=== PATIENT | female | born 1985 | race Caucasian/White ===

== ENCOUNTER 2019-10-10 16:19 | Emergency (ER) | payer SELFPAY ==
[2019-10-10 17:22] LABS: Urine Blood TRACE (NEG); Urine Glucose NEGATIVE (NEG); Urine Protein NEGATIVE (NEG)
--- NOTE | 2019-10-10 17:44 | RAD REPORT ---
EXAM DESCRIPTION: CT - Stone Protocol - 10/10/2019 5:29 pm CLINICAL HISTORY: Abdominal pain. COMPARISON: None. TECHNIQUE: Computed axial tomography of the abdomen pelvis was obtained without oral or IV contrast. Lack of IV and oral contrast limits evaluation of solid organs, bowel, and vessels. Coronal reformat viirdiana images were obtained and reviewed. All CT scans are performed using dose optimization technique as appropriate and may include automated exposure control or mA/KV adjustment according to patient size. FINDINGS: Multiple, bilateral very small renal calculi. No hydronephrosis. An ureteral calculus is n ot noted. A bladder calculus is not present. 7 millimeter low-density area the right kidney is nonspe cific but probably is a cyst The liver, spleen, pancreas and adrenals appear grossly normal There is no evidence of diverticulitis. The appendix appears normal An IUD is present within the uterus IMPRESSION: Small, bilateral nonobstructing renal calculi
--- NOTE | 2019-10-10 18:03 | ER ---
Nurse's Notes [facility] Name: January Martinez Age: 33 yrs Sex: Female : 1985 Arrival Date: 10/10/2019 Time: 16:21 Bed 13 Private MD: Diagnosis: Unspecified renal colic Presentation: 10/09 16:36 Chief complaint: Patient states: I HAD REALLY BAD BACK PAIN LAST NIGHT AND THIS MORNING ss IT STARTED IN THE FRONT. I DIDN'T KNOW IF IT WAS A UTI, SO I STUCK MY FINGERS UP IN THERE AND IT FELT TIGHTER THAN USUAL. Coronavirus screen: Proceed with normal triage. Ebola Screen: No symptoms or risks identified at this time. Initial Sepsis Screen: Does the patient meet any 2 criteria? HR > 90 bpm. No. Patient's initial sepsis screen is negative. Does the patient have a suspected source of infection? Yes: Dysuria/Frequency/Urgency/UTI. Risk Assessment: Do you want to hurt yourself or someone else? Patient reports no desire to harm self or others. Onset of symptoms is unknown. 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 - Social history:: Smoking status: Patient denies any tobacco usage or history of. Screenin:44 Abuse screen: Denies threats or abuse. Nutritional screening: No deficits noted. tw2 Tuberculosis screening: No symptoms or risk factors identified. Fall Risk None identified. Assessment: 17:30 General: Appears uncomfortable, Behavior is cooperative, appropriate for age, anxious. tw2 Pain: Complains of pain in back. Neuro: Level of Consciousness is awake, alert, obeys commands, Oriented to person, place, time, situation. Cardiovascular: Heart tones S1 S2 Capillary refill < 3 seconds Patient's skin is warm and dry. Respiratory: Airway is patent Respiratory effort is even, unlabored, Respiratory pattern is regular, symmetrical, Breath sounds are clear bilaterally. GI: No signs and/or symptoms were reported involving the gastrointestinal system. : No signs and/or symptoms were reported regarding the genitourinary system. EENT: No signs and/or symptoms were reported regarding the EENT system. Derm: No signs and/or symptoms reported regarding the dermatologic system. Musculoskeletal: Circulation, motion, and sensation intact. Range of motion: intact in all extremities. 18:44 Reassessment: Patient appears in no apparent distress at this time. No changes from tw2 previously documented assessment. Patient and/or family updated on plan of care and expected duration. Pain level reassessed. Patient is alert, oriented x 3, equal unlabored respirations, skin warm/dry/pink. Patient states feeling better. Vital Signs: 16:36 BP 143 / 75; Pulse 130; Resp 20; Temp 98.1; Pulse Ox 100% ; Weight 68.04 kg; Height 5 ss ft. 4 in. (162.56 cm); 18:14 BP 116 / 76; Pulse 113; Resp 19; Temp 97.9(O); Pulse Ox 99% on R/A; tw2 16:36 Body Mass Index 25.75 (68.04 kg, 162.56 cm) ss ED Course: 16:21 Patient arrived in ED. as 16:37 Triage completed. ss 16:38 Arm band placed on. ss 17:22 Bed in low position. Call light in reach. Pulse ox on. NIBP on. Warm blanket given. tw2 17:27 Diane Portillo, RN is Primary Nurse. tw2 17:29 CT Stone Protocol In Process Unspecified. EDMS 17:45 Krist[facility] Craig [facility]-C [facility]. snw 17:45 Jon Spann MD is Attending Physician. snw 18:46 No provider procedures requiring assistance completed. Patient did not have IV access tw2 during this emergency room visit. Administered Medications: 18:17 Drug: TORadol 30 mg Route: IM; Site: left deltoid; tw2 18:40 Follow up: Response: No adverse reaction; Pain is decreased tw2 Outcome: 18:02 Discharge ordered by . snw 18:46 Discharged to home ambulatory. tw2 18:46 Condition: stable 18:46 Discharge instructions given to patient, Instructed on discharge instructions, follow up and referral plans. medication usage, Demonstrated understanding of instructions, follow-up care, medications, Prescriptions given X 1. 18:47 Patient left the ED. tw2 Signatures: Dispatcher [employer] EDMS Kristy Craig, PAN WASHER-C PAN WASHER-Csnw Amanda Mar Shelby, RN RN Diane Portillo RN RN tw2 Corrections: (The following items were deleted from the chart) 18:46 18:44 Reassessment: Patient appears in no apparent distress at this time. No changes tw2 from previously documented assessment. Patient and/or family updated on plan of care and expected duration. Pain level reassessed. Patient is alert, oriented x 3, equal unlabored respirations, skin warm/dry/pink. tw2
--- NOTE | 2019-10-10 18:03 | EDPHYS ---
Physician Documentation [facility] Name: January Martinez Age: 33 yrs Sex: Female : 1985 Arrival Date: 10/10/2019 Time: 16:21 Bed 13 Private MD: ALBINO Physician Jon Spann HPI: 10/09 18:00 This 33 yrs old Female presents to ER via Ambulatory with complaints of Low snw Back Pain, Pelvic Pain. 18:00 The patient presents with pain that is acute, with no known mechanism of injury. The snw symptoms are located in the flank with radiation around to low pelvis. The pain radiates to the pelvis. The problem was sustained from unknown cause. Onset: The symptoms/episode began/occurred suddenly, yesterday. Associated signs and symptoms: The patient has no apparent associated signs or symptoms. Severity of symptoms: At their worst the symptoms were moderate, severe. The patient has not experienced similar symptoms in the past. It is unknown whether or not the patient has recently seen a physician. no fever, no vaginal discharge, + menses. 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 - Social history:: Smoking status: Patient denies any tobacco usage or history of. ROS: 17:55 Constitutional: Negative for fever, chills, and weight loss, Eyes: Negative for injury, snw pain, redness, and discharge, ENT: Negative for injury, pain, and discharge, Neck: Negative for injury, pain, and swelling, Cardiovascular: Negative for chest pain, palpitations, and edema, Respiratory: Negative for shortness of breath, cough, wheezing, and pleuritic chest pain, Abdomen/GI: Negative for abdominal pain, nausea, vomiting, diarrhea, and constipation, MS/Extremity: Negative for injury and deformity, Skin: Negative for injury, rash, and discoloration, Neuro: Negative for headache, weakness, numbness, tingling, and seizure, Psych: Negative for depression, anxiety, suicide ideation, homicidal ideation, and hallucinations. 17:55 Back: Positive for flank pain, bilaterally, last pm that moved around to lower abdomen. . 17:55 : Positive for pt states she is on her period and felt pulling to pelvic area. Exam: 17:55 Constitutional: This is a well developed, well nourished patient who is awake, alert, snw and in no acute distress. Head/Face: Normocephalic, atraumatic. Eyes: Pupils equal round and reactive to light, extra-ocular motions intact. Lids and lashes normal. Conjunctiva and sclera are non-icteric and not injected. Cornea within normal limits. Periorbital areas with no swelling, redness, or edema. ENT: Nares patent. No nasal discharge, no septal abnormalities noted. Tympanic membranes are normal and external auditory canals are clear. Oropharynx with no redness, swelling, or masses, exudates, or evidence of obstruction, uvula midline. Mucous membranes moist. Neck: Trachea midline, no thyromegaly or masses palpated, and no cervical lymphadenopathy. Supple, full range of motion without nuchal rigidity, or vertebral point tenderness. No Meningismus. Chest/axilla: Normal chest wall appearance and motion. Nontender with no deformity. No lesions are appreciated. Cardiovascular: Regular rate and rhythm with a normal S1 and S2. No gallops, murmurs, or rubs. Normal PMI, no JVD. No pulse deficits. Respiratory: Lungs have equal breath sounds bilaterally, clear to auscultation and percussion. No rales, rhonchi or wheezes noted. No increased work of breathing, no retractions or nasal flaring. Abdomen/GI: Soft, non-tender, with normal bowel sounds. No distension or tympany. No guarding or rebound. No evidence of tenderness throughout. Back: No spinal tenderness. No costovertebral tenderness. Full range of motion. MS/ Extremity: Pulses equal, no cyanosis. Neurovascular intact. Full, normal range of motion. Neuro: Awake and alert, GCS 15, oriented to person, place, time, and situation. Cranial nerves II-XII grossly intact. Motor strength 5/5 in all extremities. Sensory grossly intact. Cerebellar exam normal. Normal gait. Psych: Awake, alert, with orientation to person, place and time. Behavior, mood, and affect are within normal limits. 17:55 Skin: Appearance: Color: normal in color, ecchymosis, that are moderate, of the back of thighs, pt states from drug use. Vital Signs: 16:36 BP 143 / 75; Pulse 130; Resp 20; Temp 98.1; Pulse Ox 100% ; Weight 68.04 kg; Height 5 ss ft. 4 in. (162.56 cm); 18:14 BP 116 / 76; Pulse 113; Resp 19; Temp 97.9(O); Pulse Ox 99% on R/A; tw2 16:36 Body Mass Index 25.75 (68.04 kg, 162.56 cm) ss MDM: 17:47 Patient medically screened. snw 18:03 Data reviewed: vital signs, nurses notes. Data interpreted: Pulse oximetry: on room air snw is 100 %. Interpretation: normal. Counseling: I had a detailed discussion with the patient and/or guardian regarding: the historical points, exam findings, and any diagnostic results supporting the discharge/admit diagnosis, the presence of at least one elevated blood pressure reading (>120/80) during this emergency department visit, lab results, radiology results, the need for outpatient follow up, to return to the emergency department if symptoms worsen or persist or if there are any questions or concerns that arise at home. Special discussion: I have referred the patient to see his PCP for further evaluation of high blood pressure. Based on the history and exam findings, there is no indication for further emergent testing or inpatient evaluation. I discussed with the patient/guardian the need to see the OB Gyne specialist for further evaluation of the symptoms. I discussed with the patient/guardian the need to see the primary care provider for further evaluation of the symptoms. 10/09 17:18 Order name: Urine Dipstick--Ancillary (enter results) [facility] 10/09 17:18 Order name: Urine --Ancillary (enter results) em 10/09 17:22 Order name: Urine --Ancillary EDDE 10/09 17:09 Order name: CT Stone Protocol; Complete Time: 17:50 snw 10/09 17:22 Order name: Urine Dipstick-Ancillary [facility] 10/09 18:03 Order name: Recheck VS; Complete Time: 18:15 snw Administered Medications: 18:17 Drug: TORadol 30 mg Route: IM; Site: left deltoid; tw2 18:40 Follow up: Response: No adverse reaction; Pain is decreased tw2 Disposition: 10/10 13:21 Co-signature as Attending Physician, Jon Spann MD I agree with the assessment and lamar plan of care. Disposition: 10/10/19 18:02 Discharged to Home. Impression: Unspecified renal colic. - Condition is Stable. - Discharge Instructions: Kidney Stones, Renal Colic, Dietary Guidelines to Help Prevent Kidney Stones, Rehydration, Adult. - Prescriptions for Diclofenac Sodium 75 mg Oral Tablet Sustained Release - take 1 tablet by ORAL route 2 times per day; 30 tablet. - Medication Reconciliation Form, Thank You Letter, Antibiotic Education, Prescription Opioid Use form. - Follow up: Emergency Department; When: As needed; Reason: Worsening of condition. Follow up: Private Physician; When: 2 - 3 days; Reason: Recheck today's complaints, Continuance of care, Re-evaluation by your physician. Signatures: Dispatcher [employer] Jon Torres MD MD cha Therrien, Shelly, TRANSIT CLERK-C TRANSIT CLERK-Csnw Yocasta Archibald RN RN Diane Portillo RN RN tw2 Corrections: (The following items were deleted from the chart) 10/09 18:47 18:02 10/10/2019 18:02 Discharged to Home. Impression: Unspecified renal colic. tw2 Condition is Stable. Forms are Medication Reconciliation Form, Thank You Letter, Antibiotic Education, Prescription Opioid Use. Follow up: Emergency Department; When: As needed; Reason: Worsening of condition. Follow up: Private Physician; When: 2 - 3 days; Reason: Recheck today's complaints, Continuance of care, Re-evaluation by your physician. snw
[2019-10-10] MEDS ORDERED: KETOROLAC 30 MG/ML INJ ONE (18:21)
[2019-10-10 18:56] VITALS: BP 116/76; TEMP 97.9; O2SAT 99
== END 2019-10-10 18:47 | disposition home or self-care (01) ==
LOC: ER 16:19
DX: N23 Unspecified renal colic (principal)
CPT/HCPCS: 74176; 76377; 81003; 81025; 96372; 99284

== ENCOUNTER 2021-03-28 19:03 | Emergency (ER) | payer SELFPAY ==
[2021-03-28 20:01] LABS: Urine Blood 1+ (Negative); Urine Glucose Negative (Negative); Urine Protein Negative (Negative); Urine Specific Gravity 1.025 (1.005-1.030); Urine pH 5.5 (5.0-7.0)
[2021-03-28 20:45] LABS: Urine Specific Gravity/Preg 1.025 (1.005-1.030)
--- NOTE | 2021-03-28 22:52 | ER ---
Nurse's Notes [facility] Name: January Martinez Age: 35 yrs Sex: Female : 1985 Arrival Date: 03/28/2021 Time: 19:06 Bed Waiting Private MD: Diagnosis: Presentation: 03/28 19:35 Chief complaint: Patient states: Pt states LLQ pain x4 days with nausea. States urine vg1 has odor and is dark in color. States has a IUD and needs to be replaced; states was suppose to go about four years ago. Pt admitted to using 'speed' today. Coronavirus screen: Vaccine status: Patient reports being unvaccinated. Client denies travel out of the [place] in the last 14 days. Ebola Screen: Patient negative for fever greater than or equal to 101.5 degrees Fahrenheit, and additional compatible Ebola Virus Disease symptoms. Initial Sepsis Screen: Does the patient meet any 2 criteria? No. Patient's initial sepsis screen is negative. Does the patient have a suspected source of infection? No. Patient's initial sepsis screen is negative. Risk Assessment: Do you want to hurt yourself or someone else? Patient reports no desire to harm self or others. Onset of symptoms was March 24, 2021. 19:35 Method Of Arrival: Ambulatory vg1 19:35 Acuity: GABO 3 vg1 Triage Assessment: 19:37 General: Appears in no apparent distress. uncomfortable, Behavior is calm, cooperative. vg1 Pain: Complains of pain in suprapubic area and left lower quadrant Pain currently is 5 out of 10 on a pain scale. GI: Reports nausea. 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 - Social history:: Smoking status: Patient reports the use of cigarette tobacco products, smokes one pack cigarettes per day. Patient uses street drugs, Methamphetamine (Meth). Assessment: 22:48 Reassessment: pt called from [employer], no response. vg1 Vital Signs: 19:35 BP 131 / 70; Pulse 99; Resp 16; Temp 97.4; Pulse Ox 100% ; Weight 74.84 kg; Height 5 vg1 ft. 4 in. (162.56 cm); Pain 5/10; 19:35 Body Mass Index 28.32 (74.84 kg, 162.56 cm) vg1 ED Course: 19:06 Patient arrived in ED. ds1 19:37 Triage completed. vg1 19:37 Arm band placed on. vg1 20:32 Patient's name was called from ER lobby. No response. lp1 Administered Medications: No medications were administered Outcome: 22:50 Patient left the ED. vg1 Signatures: Malou Lares ds1 Bev Boyle RN RN lp1 Carolyn Don RN RN vg1
[2021-03-28 23:10] VITALS: BP 131/70; TEMP 97.4; O2SAT 100
== END 2021-03-28 22:50 | disposition left against medical advice (07) ==
LOC: ER 19:03
DX: Z53.21 Procedure and treatment not carried out due to patient leaving prior to being seen by health care provider (principal)
CPT/HCPCS: 81003; 81025; 99281